=== PATIENT | female | born 1960 | race Caucasian/White ===

== ENCOUNTER 2019-03-10 09:33 | Day surgery (SDC) | payer OTHER ==
[2019-03-10 11:03] VITALS: BMI 37.8
[2019-03-10 12:02] VITALS: TEMP 97.7
[2019-03-10 13:10] VITALS: BP 121/66; PULSE 68
--- NOTE | 2019-03-12 14:39 | PATH ---
Surgical Pathology Report Patient Name: JOHN MORATAYA [facility]. Rec. #: [id number] /Age/Gender: 1960 (Age: 59) / F Account: [id number] Location: ASU-ENDOSCOPY Taken: 03/10/2019 Received: 03/10/2019 Reported: 03/12/2019 Physicians: Rita Freemdan M.D. Specimen(s) Received ILEOCECAL VALVE BX Clinical History Screening, worsening constipation Post-operative diagnosis: Diverticulosis and ileocecal valve polyp vs. lipoma bx Final Diagnosis ILEOCECAL VALVE, POLYP VS. LIPOMA, BIOPSY: FRAGMENTS OF TUBULAR ADENOMA. Electronically Signed Priscila Riley M.D. Gross Description Received in formalin, labeled "ileocecal valve polyp vs lipoma" are multiple fragments of light eaton and yellow-eaton tissue having an aggregate of 1.0 x 0.4 x 0.2 cm. Entirely submitted in one cassette. AE/03/10/2019 ebram/03/10/2019
== END 2019-03-10 13:10 | disposition home or self-care (01) ==
LOC: JASU-ENDO 09:33
PROVIDERS: ATTEND Internal Medicine Gastroenterology
PROC: 0DBC8ZX Excision of Ileocecal Valve, Via Natural or Artificial Opening Endoscopic, Diagnostic (ICD-10-PCS; principal; 2019-03-10 10:45)
DX: Z12.11 Encounter for screening for malignant neoplasm of colon (principal); D12.0 Benign neoplasm of cecum; K59.00 Constipation, unspecified; E11.42 Type 2 diabetes mellitus with diabetic polyneuropathy; K21.9 Gastro-esophageal reflux disease without esophagitis; K44.9 Diaphragmatic hernia without obstruction or gangrene; M19.90 Unspecified osteoarthritis, unspecified site; Z98.84 Bariatric surgery status
CPT/HCPCS: 88305-TC

== ENCOUNTER 2019-11-16 14:15 | Emergency (ER) | payer BC, OTHER ==
--- NOTE | 2019-11-16 14:22 | PDOC ---
History of Present Illness - General Chief Complaint: Injury Stated Complaint: LEFT KNEE INJURY History Source: Patient Exam Limitations: No Limitations - History of Present Illness Initial Comments: 59 yo F presents s/p knee injury last night. 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 She felt a pop while she moved. She has been limping ever since. She takes tramadol for chronic back pain due to a work injury, is out on disability. Denies any other injuries. Pain is moderate to severe, much worse with weight bearing. Past History - Past Medical History Allergies/Adverse Reactions: Allergies Allergy/AdvReac Type Severity Reaction Status Date / Time shellfish derived Allergy Severe Hives Verified 11/16/19 14:17 sulfamethoxazole Allergy Severe Hives Verified 11/16/19 14:17 [From Bactrim] trimethoprim [From Bactrim] Allergy Severe Hives Verified 11/16/19 14:17 nitrofurantoin Allergy Verified 11/16/19 14:17 [From Macrobid] nitrofurantoin Allergy Verified 11/16/19 14:17 macrocrystalline [From Macrobid] Penicillins Allergy Verified 11/16/19 14:17 vancomycin Allergy Verified 11/16/19 14:17 BLUE CHEESE Allergy Intermediate Hives Uncoded 11/16/19 14:18 MUSHROOMS Allergy Intermediate Hives Uncoded 11/16/19 14:18 Home Medications: Ambulatory Orders Potassium Chloride [K-Dur -] 40 meq PO TID 04/22/12 Topiramate [Topamax -] 100 mg PO BID 04/22/12 Omeprazole Magnesium [Prilosec (OTC)] 20 mg PO DAILY 09/23/12 Spironolactone [Aldactone -] 50 mg PO BID 09/23/12 Furosemide [Lasix -] 80 mg PO HS 06/19/14 Cyclobenzaprine HCl [Flexeril -] 5 mg PO HS 07/01/14 Gabapentin 300 mg PO TID 03/10/19 Tramadol HCl 50 mg PO PRN PRN 03/10/19 Gabapentin [Neurontin] 600 mg PO HS 11/16/19 Anemia: No Asthma: Yes (RESOLVED) Cancer: No Cardiac Disorders: Yes (ARRYTHMIA) CVA: No COPD: No CHF: No Dementia: No Diabetes: Yes (;DIABETES RESOLVED) GI Disorders: Yes (GERD) Disorders: No HTN: No Hypercholesterolemia: No Liver Disease: No Seizures: No Thyroid Disease: Yes (HYPOTHYROIDISM) - Surgical History Abdominal Surgery: Yes (GASTRIC BYPASS,HERNIA REPAIR ( ABDOMINOPLASTY) Appendectomy: No Cardiac Surgery: No Cholecystectomy: Yes Lung Surgery: No Neurologic Surgery: No Orthopedic Surgery: Yes (RIGHT SHOULDER IMPINGEMENT) - Psycho Social/Smoking Cessation Hx Smoking History: Former smoker Have you smoked in the past 12 months: No Hx Alcohol Use: No Drug/Substance Use Hx: No Substance Use Type: None Hx Substance Use Treatment: No Review of Systems - Review of Systems Able to Perform ROS?: Yes Comments:: GENERAL/CONSTITUTIONAL: No fever or chills. No weakness. HEAD, EYES, EARS, NOSE AND THROAT: No change in vision. No ear pain or discharge. No sore throat. MUSCULOSKELETAL: +L knee pain. +Chronic back pain. SKIN: No rash. NEUROLOGIC: No headache, vertigo, loss of consciousness, or change in strength/ sensation. *Physical Exam - Physical Exam GENERAL: Awake, alert, and fully oriented, in no acute distress. Obese HEAD: No signs of trauma EXTREMITIES: L knee with dec ROM due to pain. +Tenderness to lateral and superior knee. Anterior/posterior drawer signs negative. MCL/LCL intact (slight laxity medially). +Tenderness with Cindy's test. Remainder of extremities with normal range of motion. No clubbing or cyanosis. No cords, erythema, or tenderness. +Chronic stasis changes to ankles B/L NEUROLOGICAL: Cranial nerves II through XII grossly intact. Normal speech. + Antalgic gait. Motor and sensation intact SKIN: Warm, dry, normal turgor, no rashes or lesions noted. Medical Decision Making - Medical Decision Making 11/16/19 15:[address] in a knee immobilizer, as the immobilizers in the ED will not fit her. Will place EUGENIA wrap for support, crutches for support as well. Ortho f/u this week. She states she will take her tramadol for pain. 11/16/19 16:05 XR no acute findings. Patient was crutch trained to assist with ambulation. Ortho f/u as an outpatient. Discharge - Discharge Information Problems reviewed: Yes Clinical Impression/Diagnosis: Knee pain Qualifiers: Chronicity: acute Laterality: left Qualified Code(s): M25.562 - Pain in left knee Condition: Stable Disposition: HOME - Admission No - Follow up/Referral Referrals: Gene Bey MD [Staff Physician] - - Patient Discharge Instructions Patient Printed Discharge Instructions: DI for Knee Pain - Post Discharge Activity
[2019-11-16 14:36] VITALS: BP 135/86; PULSE 68; TEMP 98.2; BMI 39.8
== END 2019-11-16 16:25 | disposition home or self-care (01) ==
LOC: FER 14:15
DX: M25.562 Pain in left knee (principal); X58.XXXA Exposure to other specified factors, initial encounter; Y93.89 Activity, other specified; Y92.22 Religious institution as the place of occurrence of the external cause; Z91.013 Allergy to seafood; Z88.8 Allergy status to other drugs, medicaments and biological substances; Z98.84 Bariatric surgery status; Z87.891 Personal history of nicotine dependence; E03.9 Hypothyroidism, unspecified; E11.9 Type 2 diabetes mellitus without complications
CPT/HCPCS: 73562-TC-LT-FY; 99281-25

== ENCOUNTER 2020-07-02 05:13 | Day surgery (SDC) | payer BC ==
[2020-06-29 15:36] VITALS: BMI 39.2
[2020-07-02 11:13] VITALS: TEMP 97.5
[2020-07-02 12:40] VITALS: BP 123/69; PULSE 57
--- NOTE | 2020-07-05 19:32 | PATH ---
Surgical Pathology Report Patient Name: JOHN MORATAYA [facility]. Rec. #: [id number] /Age/Gender: 1960 (Age: 60) / F Account: [id number] Location: ASU-ENDOSCOPY Taken: 07/02/2020 Received: 07/02/2020 Reported: 07/05/2020 Physicians: Jaren Freedman M.D. Specimen(s) Received A: POLYP PROXIMAL TRANSVERSE COLON B: POLYP ILEOCECAL VALVE Clinical History History of polyps Postoperative diagnosis: Diverticulosis, melanosis coli, colon polyps Final Diagnosis A. PROXIMAL TRANSVERSE COLON, POLYP, BIOPSY: TUBULAR ADENOMA. MELANOSIS COLI. B. ILEOCECAL VALVE, POLYP, BIOPSY: TUBULAR ADENOMA, FRAGMENTS. Electronically Signed Reyna Rodriguez M.D. Gross Description A. Received in formalin, labeled "biopsy polyp proximal transverse colon" are 2 eaton, irregular portions of soft tissue measuring 0.1 and 0.5 cm. in greatest dimension. The specimens are submitted in toto in one cassette. B. Received in formalin, labeled "biopsy polyp ileocecal valve" are 4 eaton, irregular portions of soft tissue ranging from 0.2-0.3 cm. in greatest dimension. The specimens are submitted in toto in one cassette. 07/02/202007/02/2020
== END 2020-07-02 12:49 | disposition home or self-care (01) ==
LOC: JASU-ENDO 05:13
PROVIDERS: ATTEND Internal Medicine Gastroenterology
PROC: 0DBL8ZX Excision of Transverse Colon, Via Natural or Artificial Opening Endoscopic, Diagnostic (ICD-10-PCS; 2020-07-02)
PROC: 0D5C8ZZ Destruction of Ileocecal Valve, Via Natural or Artificial Opening Endoscopic (ICD-10-PCS; principal; 2020-07-02 10:36)
DX: Z12.11 Encounter for screening for malignant neoplasm of colon (principal); D12.3 Benign neoplasm of transverse colon; K57.30 Diverticulosis of large intestine without perforation or abscess without bleeding; K63.89 Other specified diseases of intestine; E11.9 Type 2 diabetes mellitus without complications; E66.01 Morbid (severe) obesity due to excess calories; I10 Essential (primary) hypertension
CPT/HCPCS: 88305-TC

== ENCOUNTER 2024-02-27 04:34 | Day surgery (SDC) | payer OTHER, MEDICARE ==
[2024-02-25 12:44] VITALS: BMI 40.5
[2024-02-27 08:49] VITALS: RESP 18
[2024-02-27 10:21] VITALS: TEMP 98.7
[2024-02-27 11:20] VITALS: BP 120/65; PULSE 77
== END 2024-02-27 11:19 | disposition home or self-care (01) ==
LOC: JASU-ENDO 04:34
PROVIDERS: ATTEND Internal Medicine Gastroenterology
PROC: 0DBA8ZX Excision of Jejunum, Via Natural or Artificial Opening Endoscopic, Diagnostic (ICD-10-PCS; 2024-02-27)
PROC: 0DB68ZX Excision of Stomach, Via Natural or Artificial Opening Endoscopic, Diagnostic (ICD-10-PCS; 2024-02-27)
PROC: 0DBC8ZX Excision of Ileocecal Valve, Via Natural or Artificial Opening Endoscopic, Diagnostic (ICD-10-PCS; principal; 2024-02-27 11:00)
DX: Z12.11 Encounter for screening for malignant neoplasm of colon (principal); D12.0 Benign neoplasm of cecum; K57.30 Diverticulosis of large intestine without perforation or abscess without bleeding; K21.00 Gastro-esophageal reflux disease with esophagitis, without bleeding; K44.9 Diaphragmatic hernia without obstruction or gangrene; K29.50 Unspecified chronic gastritis without bleeding; K64.8 Other hemorrhoids; Z86.010 Personal history of colon polyps; Z98.84 Bariatric surgery status; Z98.0 Intestinal bypass and anastomosis status
CPT/HCPCS: 88305-TC; 88342-TC